=== PATIENT | female | born 1950 | race Caucasian/White ===

== ENCOUNTER → 2017-07-02 | Outpatient (CLI) | payer OTHER ==
--- NOTE | 2017-07-03 09:25 | PCVCIMAG ---
APPROVED REPORT Study performed: 07/02/2017 14:43:04 EXAM: Comprehensive 2D, Doppler, and color-flow Echocardiogram Patient Location: Echo lab Status: routine BSA: 2.14 HR: 66 bpmBP: 152/84 mmHg Rhythm: NSR Other Information Study Quality: Adequate Risk Factors: Cardiac Risk Factors: HTN Indications Murmur Dyspnea 2D Dimensions IVSd: 11.31 (7-11mm)LVOT Diam: 20.00 (18-24mm) LVDd: 38.68 mm PWd: 10.62 (7-11mm)Ascending Ao: 30.26 (22-36mm) LVDs: 23.95 (25-40mm) Left Atrium: 42.95 (27-40mm) Aortic Root: 23.20 mm LV Single Plane 4CH: 49.54 % LV Single Plane 2CH: 56.32 %Del Toro's LVEF: 52.93 % Biplane EF: 53.0 % Volumes Left Atrial Volume (Systole) Single Plane 4CH: 36.17 mLSingle Plane 2CH: 38.69 mL LA ESV Index: 20.00 mL/m2 Aortic Valve AoV Peak Romulo.: 2.45 m/s AO Peak Gr.: 24.66 mmHgLVOT Max P.52 mmHg AO Mean Gr.: 13.78 mmHg AO V2 Mean: 1.81 m/sLVOT Max V: 0.94 m/s AO V2 VTI: 58.20 cm IMELDA Vmax: 1.23 cm2 Mitral Valve E/A Ratio: 1.1 MV Decel. Time: 265.51 ms MV E Max Romulo.: 0.98 m/s MV A Romulo.: 0.93 m/s MV PHT: 77.00 ms IVRT: 62.28 ms TDI E/Lateral E': 14.00E/Medial E': 16.33 Medial E' Romulo.: 0.06 m/s Lateral E' Romulo.: 0.07 m/s Pulmonary Valve PV Peak Romulo.: 1.39 m/sPV Peak Gr.: 7.78 mmHg Pulmonary Vein P Vein S: 0.52 m/sP Vein A: 0.35 m/s P Vein D: 0.54 m/sP Vein A Dur.: 110.7 msec P Vein S/D Ratio: 0.96 Tricuspid Valve TR Peak Romulo.: 2.68 m/sRAP Estimate: 7.00 mmHg TR Peak Gr.: 28.63 mmHg PA Pressure: 36.00 mmHg Left Ventricle The left ventricle is normal size. There is normal LV segmental wall motion. Borderline concentric left ventricular hypertrophy. Left ventricular systolic function is normal. The left ventricular ejection fraction is within the normal range. LVEF is 50-55%. Grade II - pseudonormal filling dynamics. Right Ventricle The right ventricle is normal size. The right ventricular systolic function is normal. Atria The left atrium size is normal. The right atrium size is normal. Aortic Valve The Aortic valve is sclerotic. Trace aortic regurgitation. Mild aortic stenosis. Aortic valve velocity at peak is 24 mmHg, mean 14 mmHg. The aortic valve area is 1.4 cm2. Mitral Valve The mitral valve is normal in structure. Trace mitral regurgitation. No evidence of mitral valve stenosis. Tricuspid Valve The tricuspid valve is normal in structure. Trace to mild tricuspid regurgitation. Pulmonary artery pressure is 36 mmHg. Pulmonic Valve The pulmonary valve is normal in structure. Trace pulmonic regurgitation. Great Vessels The aortic root is normal in size. IVC is normal in size and collapses with >50% inspiration. Pericardium There is no pericardial effusion. <Conclusion> The left ventricle is normal size. LVEF is 50-55%. The Aortic valve is sclerotic. Trace aortic regurgitation. Mild aortic stenosis. Aortic valve velocity at peak is 24 mmHg, mean 14 mmHg. The aortic valve area is 1.4 cm2. The mitral valve is normal in structure. Trace mitral regurgitation. The tricuspid valve is normal in structure. Trace to mild tricuspid regurgitation. Pulmonary artery pressure is 36 mmHg. The pulmonary valve is normal in structure. Trace pulmonic regurgitation. There is no pericardial effusion.
== END | disposition home or self-care (01) ==
LOC: PCVCIMAG 14:13
PROVIDERS: ATTEND Internal Medicine
DX: I35.0 Nonrheumatic aortic (valve) stenosis (principal); R01.1 Cardiac murmur, unspecified; R06.00 Dyspnea, unspecified; E78.5 Hyperlipidemia, unspecified
CPT/HCPCS: 80061; 93306